=== PATIENT | female | born 1980 | race Caucasian/White ===

== ENCOUNTER 2022-04-28 12:21 | Emergency (ER) | payer OTHER ==
[~2022-04-28] VITALS: Ht 149.9 cm; Wt 63.7 kg
[2022-04-28 12:50] VITALS: BP 169/104
--- NOTE | 2022-04-28 13:00 | NUR ---
BIB SELF C/O LEFT FOOT PAIN S/P FALL X 2 DAYS. BP 169/104 AT THIS TIME. PMH: HTN, PRE DM
[2022-04-28] MEDS ORDERED: KETOROLAC 30 MG/ML VIAL IM ONE (13:20)
[2022-04-28] MEDS ORDERED: IBUP-2213 PO (13:28)
[2022-04-28] MEDS ORDERED: ACET-8386 PO (13:28)
--- NOTE | 2022-04-28 13:53 | NUR ---
PER ER MID LEVEL, SHORT LEG POSTERIOR SPLINT APPLIED TO L LOWER LEG. SHORT LEG POSTERIOR SPLINT WRAPPED WITH X 2 ANDRIY WRAP AND 2 X BANDAGE. + CMS AFTER APPLICATION. PT ALSO INSTRUCTED ON HOW TO USE CRUTCHES. CRUTCHES ADJUSTED TO PROPER ARM LENGTH AND ARM HEIGHT. PT RETURNED SAFE DEMONSTRATION.
--- NOTE | 2022-04-28 14:04 | NUR ---
Patient discharged with v/s stable. Written and verbal after care instructions ABOUT TARSAL FRACTURE given and explained. Patient alert, oriented and verbalized understanding of instructions. Wheel Chair Assisted with to car. All questions addressed prior to discharge. ID band removed. Patient advised to follow up with PMD. Rx of NORCO AND MOTRIN given. Patient educated on indication of medication including possible reaction and side effects. Opportunity to ask questions provided and answered.
== END 2022-04-28 14:04 | disposition home or self-care (01) ==
LOC: MED 12:21
DX: S92.352A Displaced fracture of fifth metatarsal bone, left foot, initial encounter for closed fracture (principal); W18.30XA Fall on same level, unspecified, initial encounter; Y93.89 Activity, other specified; Y92.89 Other specified places as the place of occurrence of the external cause; Y99.8 Other external cause status
CPT/HCPCS: 29515; 73630; 96372; 99283; J1885

== ENCOUNTER 2023-06-05 11:18 | Emergency (ER) | payer OTHER ==
[~2023-06-05] VITALS: Ht 149.9 cm; Wt 68.5 kg
[~2023-06-05 11:18] MED LIST: ACET-8905 PO; IBUP-2213 PO
[2023-06-05 11:44] VITALS: BP 163/88; PULSE 80; RESP 16; TEMP 98; O2SAT 99
[2023-06-05] MEDS ORDERED: KETOROLAC 30 MG/ML VIAL IM ONE (12:15)
[2023-06-05 12:52] LABS: APPEARANCE,URINE CLEAR (CLEAR); BILIRUBIN,URINE NEGATIVE (NEGATIVE); BLOOD, URINE NEGATIVE (NEGATIVE); COLOR,URINE YELLOW (YELLOW); LEUKOCYTE ESTERASE ,URINE NEGATIVE (NEGATIVE); NITRITE, URINE NEGATIVE (NEGATIVE); PH,URINE 6.5 (5.0-9.0); PROTEIN,URINE NEGATIVE (NEGATIVE); UGLUCOSE NEGATIVE (NEGATIVE); UROBILINOGEN,URINE 0.2 EU/dL (0.2 - 1)
[2023-06-05] MEDS ORDERED: IBUP-2213 PO (14:07)
[2023-06-05] MEDS ORDERED: CAPS1ADH5 TP (14:07)
[2023-06-05] MEDS ORDERED: CEPH-588 PO (14:07)
== END 2023-06-05 14:57 | disposition home or self-care (01) ==
LOC: MED 11:18
DX: S92.492A Other fracture of left great toe, initial encounter for closed fracture (principal); S39.012A Strain of muscle, fascia and tendon of lower back, initial encounter; X58.XXXA Exposure to other specified factors, initial encounter; Y93.89 Activity, other specified; Y92.89 Other specified places as the place of occurrence of the external cause; Y99.8 Other external cause status
CPT/HCPCS: 29515; 73630; 74176; 81003; 81025; 87086; 96372; 99285; J1885

== ENCOUNTER 2024-02-13 11:11 | Emergency (ER) | payer OTHER ==
[~2024-02-13] VITALS: Ht 149.9 cm; Wt 65.8 kg
[~2024-02-13 11:11] MED LIST changes: +CAPS1ADH5 TP; +CEPH-588 PO
[2024-02-13 11:21] VITALS: BP 167/118; PULSE 79; RESP 20; TEMP 98; O2SAT 99
[2024-02-13] MEDS ORDERED: IBUP-2213 PO (11:47)
[2024-02-13] MEDS ORDERED: PRED20TA5 PO (11:47)
[2024-02-13 12:06] VITALS: BP 153/79; PULSE 86; RESP 18; TEMP 98; O2SAT 98
== END 2024-02-13 12:05 | disposition home or self-care (01) ==
LOC: MED 11:11
DX: R05.9 Cough, unspecified (principal); R06.02 Shortness of breath; R07.9 Chest pain, unspecified; I10 Essential (primary) hypertension; Z98.890 Other specified postprocedural states; Z79.899 Other long term (current) drug therapy
CPT/HCPCS: 99283

== ENCOUNTER 2024-05-02 10:02 | Emergency (ER) | payer OTHER ==
[~2024-05-02] VITALS: Ht 149.9 cm; Wt 68.2 kg
[~2024-05-02 10:02] MED LIST changes: +PRED20TA5 PO
[2024-05-02 10:11] VITALS: BP 168/98; PULSE 114; RESP 20; TEMP 98.8; O2SAT 97
[2024-05-02 10:45] VITALS: O2SAT 97
[2024-05-02] MEDS ORDERED: ONDA-188 PO (10:58)
[2024-05-02] MEDS ORDERED: NAPR-1704 PO (10:58)
[2024-05-02 11:04] LABS: FLU A ANTIGEN negative (NEGATIVE); FLU B ANTIGEN negative (NEGATIVE)
[2024-05-02] MEDS ORDERED: NIRM1TAB9 PO (11:10)
== END 2024-05-02 11:15 | disposition home or self-care (01) ==
LOC: MED 10:02
DX: U07.1 COVID-19 (principal); R00.0 Tachycardia, unspecified; I10 Essential (primary) hypertension; Z98.890 Other specified postprocedural states; Z79.899 Other long term (current) drug therapy
CPT/HCPCS: 99283